=== PATIENT | female | born 2005 | race American Indian/Alaskan Native ===

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

== ENCOUNTER 2024-10-19 14:12 | Emergency (ER) | payer SELFPAY | END 2024-10-19 19:17 | disposition left against medical advice (07) | LOC: DL.ED 14:12 | DX: Z53.21 Procedure and treatment not carried out due to patient leaving prior to being seen by health care provider (principal) ==

== ENCOUNTER 2025-01-25 12:50 | Emergency (ER) | payer OTHER ==
[2025-01-25 13:04] VITALS: BP 147/101; PULSE 103
[2025-01-25] MEDS: Take Home: Amoxicillin 500 MG, 6 Cap Pack PO ONE (13:29)
== END 2025-01-25 13:34 | disposition home or self-care (01) ==
LOC: DL.ED 12:50
DX: J02.0 Streptococcal pharyngitis (principal); Z79.899 Other long term (current) drug therapy
CPT/HCPCS: 87430; 99283; A9270